=== PATIENT | male | born 1960 | race Two or more races ===

== ENCOUNTER 2022-04-02 09:01 | Outpatient (CLI) | payer OTHER | END 2022-04-02 09:28 | disposition home or self-care (01) | LOC: RAD 09:01 | PROVIDERS: ATTEND General Practice | DX: R10.9 Unspecified abdominal pain (principal); N40.0 Benign prostatic hyperplasia without lower urinary tract symptoms; D23.0 Other benign neoplasm of skin of lip; M26.609 Unspecified temporomandibular joint disorder, unspecified side ==